=== PATIENT | female | born 2000 | race Caucasian/White ===

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

== ENCOUNTER 2019-01-25 05:33 | Emergency (ER) | payer MEDICAID, OTHER ==
[2019-01-25 06:03] VITALS: BP 137/86; PULSE 113
[2019-01-25] MEDS ORDERED: oxyCODONE 5 MG Tab PO ONE (07:02)
--- NOTE | 2019-01-25 07:26 | EDM.PDOC ---
ED HPI GENERAL MEDICAL PROBLEM - General Chief Complaint: General Stated Complaint: POST SURGERY PAIN Time Seen by Provider: 01/25/19 06:30 Source of Information: Reports: Patient History Limitations: Reports: No Limitations - History of Present Illness INITIAL COMMENTS - FREE TEXT/NARRATIVE: 18 yo presents with concerns of left hand pain Had traumatic injury to the extremity last week. Transferred to [place], had 3 operations there by ortho, hand, and trauma (skin graft) Doing well post-op until this AM. Noticed significant increase in pain in the left hand. Numbness of the left pinkie. Hasn't been responsive to pain meds, has been elevating the extremity. Right Arm Pain Score (Numeric/FACES): 7 - Related Data Allergies Allergy/AdvReac Type Severity Reaction Status Date / Time No Known Allergies Allergy Verified 01/25/19 05:45 Home Meds: Home Meds SUMAtriptan Succinate [Imitrex] 50 mg PO ASDIRECTED 06/04/16 [History] medroxyPROGESTERone Acetate [Depo-Provera] 1 ml IM Q90D 06/04/16 [History] ALPRAZolam [Alprazolam] 1 mg PO TID PRN 01/25/19 [History] Gabapentin [Neurontin] 300 mg PO TID 01/25/19 [History] Ibuprofen 600 mg PO Q6H PRN 01/25/19 [History] Sulfamethoxazole/Trimethoprim [Bactrim Ds Tablet] 1 each PO BID 01/25/19 [ History] oxyCODONE 10 mg PO Q3H PRN 01/25/19 [History] tiZANidine [Zanaflex] 2 mg PO Q8H PRN 01/25/19 [History] Past Medical History HEENT History: Reports: Allergic Rhinitis Respiratory History: Reports: Asthma Gastrointestinal History: Reports: Cholelithiasis, GERD Genitourinary History: Reports: UTI, Recurrent Musculoskeletal History: Reports: Fracture, Other (See Below) Other Musculoskeletal History: "snapping right hip", muscle spasms of lower extremity Neurological History: Reports: Migraines Psychiatric History: Reports: Anxiety, Depression, OCD, Suicide Attempt - Infectious Disease History Infectious Disease History: Reports: MRSA - Past Surgical History HEENT Surgical History: Reports: Adenoidectomy, Tonsillectomy Respiratory Surgical History: Reports: None GI Surgical History: Reports: Cholecystectomy Female Surgical History: Reports: None Neurological Surgical History: Reports: None Musculoskeletal Surgical History: Reports: None, Other (See Below) Dermatological Surgical History: Reports: Skin Graft, Other (See Below) Social & Family History - Family History Family Medical History: Noncontributory - Caffeine Use Caffeine Use: Reports: Soda Caffeine Use Comment: small amount - Recreational Drug Use Recreational Drug Use: Yes Recreational Drug Type: Reports: Marijuana/Hashish Recreational Drug Use Frequency: Rarely ED ROS GENERAL - Review of Systems Review Of Systems: See Below Constitutional: Reports: No Symptoms HEENT: Reports: No Symptoms Respiratory: Reports: No Symptoms Cardiovascular: Reports: No Symptoms Endocrine: Reports: No Symptoms GI/Abdominal: Reports: No Symptoms : Reports: No Symptoms Musculoskeletal: Reports: Hand Pain Skin: Reports: No Symptoms Neurological: Reports: No Symptoms Psychiatric: Reports: No Symptoms Hematologic/Lymphatic: Reports: No Symptoms Immunologic: Reports: No Symptoms ED EXAM, GENERAL - Physical Exam Exam: See Below Exam Limited By: No Limitations General Appearance: Alert, Mild Distress Nose: Normal Inspection Throat/Mouth: Normal Inspection Head: Atraumatic, Normocephalic Respiratory/Chest: No Respiratory Distress, Lungs Clear Cardiovascular: Regular Rate, Rhythm GI/Abdominal: Soft, Non-Tender Back Exam: Normal Inspection Extremities: Other (left arm/hand in splint. taken down. endorses sensation loss over left pinkie - otherwise intact. Difficult to assess compartments due to overlying skin grafts and pain.) Neurological: Alert, Oriented Psychiatric: Normal Affect, Normal Mood Skin Exam: Warm, Dry Course - Vital Signs Last Recorded V/S: Last Vital Signs Temp 36.4 C 01/25/19 06:04 Pulse 113 H 01/25/19 06:04 Resp 18 01/25/19 06:04 BP 137/86 01/25/19 06:04 Pulse Ox 99 01/25/19 06:04 - Orders/Labs/Meds Meds: Medications Discontinued Medications Generic Name Dose Route Start Last Admin Trade Name Freq PRN Reason Stop Dose Admin Oxycodone HCl 10 mg 01/25/19 07:02 01/25/19 07:07 Oxycodone PO 01/25/19 07:03 10 mg ONETIME ONE Administration - Re-Assessments/Exams Free Text/Narrative Re-Assessment/Exam: 18 yo present with acute worsening of left hand pain after recent traumatic injury and surgical repair of the extremity. Took down splint, no relief. Some sensory changes. Given pain, skin grafts difficulty to assess for compartment syndrome but concern for this. Discussed with trauma center in [place], agreed accept in transfer for consultation with specialist. Provided with analgesics. Recommended patient go by ambulance given concern for emergency diagnosis. She declined, understanding the risks, and will travel by private car. 01/25/19 07:43 Departure - Departure Time of Disposition: 07:20 Disposition: Home, Self-Care 01 Clinical Impression: Posttraumatic pain - Discharge Information *PRESCRIPTION DRUG MONITORING PROGRAM REVIEWED*: No *COPY OF PRESCRIPTION DRUG MONITORING REPORT IN PATIENT [place]: No Referrals: PCP,None [Primary Care Provider] - Forms: ED Department Discharge Additional Instructions: Please proceed immediately to the [facility] ER.
== END 2019-01-25 07:41 | disposition home or self-care (01) ==
LOC: JP.ED 05:33
DX: G89.18 Other acute postprocedural pain (principal); M79.642 Pain in left hand; J45.909 Unspecified asthma, uncomplicated; K21.9 Gastro-esophageal reflux disease without esophagitis; F41.9 Anxiety disorder, unspecified; F32.9 Major depressive disorder, single episode, unspecified; Z79.899 Other long term (current) drug therapy
CPT/HCPCS: 99283; A9270; 99284

== ENCOUNTER 2020-03-27 11:48 | Emergency (ER) | payer MEDICAID ==
[2020-03-27] MEDS ORDERED: Ketorolac 60 MG/2 ML SDV IM ONE (12:29)
--- NOTE | 2020-03-27 12:37 | EDM.PDOC ---
ED HPI GENERAL MEDICAL PROBLEM - General Chief Complaint: Chest Pain Stated Complaint: SEVERE LEFT SIDE CHEST PAIN Time Seen by Provider: 03/27/20 12:25 Source of Information: Reports: Patient, Old Records, RN History Limitations: Reports: No Limitations - History of Present Illness INITIAL COMMENTS - FREE TEXT/NARRATIVE: 19 yo female marijuana smoker presents with anterior chest tightness that came on earlier this morning and is not associated with a cough, exertion, or breathing. No hx of the same. No self tx. No calf pain or LE edema. Is on the Nuvaring contraceptive device. Is a smoker. Onset: Today Onset Date: 03/27/20 Duration: Hour(s):, Constant Location: Reports: Chest Quality: Reports: Other (mild tightness) Severity: Mild Improves with: Reports: None Worsens with: Reports: None Context: Reports: Other (See HPI) Associated Symptoms: Reports: Chest Pain. Denies: Cough, Diaphoresis, Fever/Chills, Shortness of Breath Treatments [employer] [address] [employer]: Reports: Other (see below) (none) Left Chest Pain Score (Numeric/FACES): 8 - Related Data Allergies Allergy/AdvReac Type Severity Reaction Status Date / Time ondansetron [From Zofran] AdvReac Vomiting Verified 03/27/20 12:15 Home Meds: Home Meds SUMAtriptan succinate [Imitrex] 50 mg PO ASDIRECTED 06/04/16 [History] ALPRAZolam [Alprazolam] 2 mg PO TID PRN 01/25/19 [History] Cannabidiol (Cbd) Extract [Cannabis (Medical)] 1 dose PO ASDIRECTED 03/27/20 [History] Pregabalin [Lyrica] 25 mg PO TID 03/27/20 [History] traZODone 100 mg PO BEDTIME 03/27/20 [History] Past Medical History HEENT History: Reports: Allergic Rhinitis Respiratory History: Reports: Asthma Gastrointestinal History: Reports: Cholelithiasis, GERD Genitourinary History: Reports: UTI, Recurrent Musculoskeletal History: Reports: Fracture, Other (See Below) Other Musculoskeletal History: "snapping right hip", muscle spasms of lower extremity Neurological History: Reports: Migraines Psychiatric History: Reports: Anxiety, Depression, OCD, Suicide Attempt - Infectious Disease History Infectious Disease History: Reports: MRSA - Past Surgical History HEENT Surgical History: Reports: Adenoidectomy, Tonsillectomy GI Surgical History: Reports: Cholecystectomy Musculoskeletal Surgical History: Reports: Other (See Below) Other Musculoskeletal Surgeries/Procedures:: left foot surgery,. a crush/mangle injury of the left arm with multiple surgeries. Dermatological Surgical History: Reports: Skin Graft, Other (See Below) Social & Family History - Family History Family Medical History: No Pertinent Family History - Tobacco Use Tobacco Use Status *Q: Light Tobacco User Years of Tobacco use: 2 Packs/Tins Daily: 0 - Caffeine Use Caffeine Use: Reports: None Caffeine Use Comment: small amount - Recreational Drug Use Recreational Drug Use: Yes ED ROS GENERAL - Review of Systems Review Of Systems: See Below Constitutional: Reports: No Symptoms HEENT: Reports: No Symptoms Respiratory: Reports: No Symptoms Cardiovascular: Reports: Chest Pain (anterior, upper) Endocrine: Reports: No Symptoms GI/Abdominal: Reports: No Symptoms : Reports: No Symptoms Musculoskeletal: Reports: No Symptoms Skin: Reports: No Symptoms Neurological: Reports: No Symptoms ED EXAM, GENERAL - Physical Exam Exam: See Below Exam Limited By: No Limitations General Appearance: Alert, WD/WN, No Apparent Distress, Thin Eye Exam: Bilateral Eye: Normal Inspection Ears: Normal External Exam, Normal Canal, Hearing Grossly Normal, Normal TMs Ear Exam: Bilateral Ear: Auricle Normal, Canal Normal Nose: Normal Inspection, No Blood Throat/Mouth: Normal Inspection, Normal Lips, Normal Voice, No Airway Compromise Head: Atraumatic, Normocephalic Neck: Normal Inspection Respiratory/Chest: No Respiratory Distress, Lungs Clear, Normal Breath Sounds, No Accessory Muscle Use. No: Chest Non-Tender (anterior chest wall is tender with palpation. ) Cardiovascular: Regular Rate, Rhythm, No Edema GI/Abdominal: Normal Bowel Sounds, Soft, Non-Tender, No Distention Back Exam: Normal Inspection. No: CVA Tenderness (R), CVA Tenderness (L) Extremities: Normal Inspection, Normal Range of Motion, Non-Tender, No Pedal Edema. No: Pedal Edema Neurological: Alert, Oriented, CN II-XII Intact, Normal Cognition, No Motor/Sensory Deficits Psychiatric: Normal Affect, Normal Mood Skin Exam: Warm, Dry, Intact, Normal Color, No Rash Course - Vital Signs Last Recorded V/S: Last Vital Signs Temp 37.1 C 03/27/20 12:12 Pulse 68 03/27/20 14:38 Resp 20 03/27/20 14:38 BP 117/66 03/27/20 14:38 Pulse Ox 98 03/27/20 14:38 - Orders/Labs/Meds Orders: Active Orders 24 hr Category Date Time Status Ang Chest [CT] Stat Exams 03/27/20 13:40 Taken Iopamidol [Isovue-370 (76%)] Med 03/27/20 14:30 Active 100 ml IV . DIRECTED Sodium Chloride 0.9% [Normal Saline] 100 ml Med 03/27/20 14:30 Active IV ASDIRECTED Sodium Chloride 0.9% [Saline Flush] Med 03/27/20 13:41 Active 10 ml FLUSH ASDIRECTED PRN Saline Lock Insert [OM.PC] Routine Oth 03/27/20 13:41 Ordered Medication Orders Sodium Chloride (Normal Saline) 100 mls @ 3.5 mls/sec IV ASDIRECTED MISAEL Stop: 03/27/20 22:00 Iopamidol (Isovue-370 (76%)) 100 ml IV . DIRECTED MISAEL Stop: 03/27/20 22:00 Sodium Chloride (Saline Flush) 10 ml FLUSH ASDIRECTED PRN PRN Reason: Keep Vein Open Last Admin: 03/27/20 13:53 Dose: 10 ml Documented by: [facility] Labs: Laboratory Tests 03/27/20 03/27/20 03/27/20 Range/Units 12:43 12:43 12:43 WBC 8.7 (4.5-11.0) K/uL RBC 4.74 (3.30-5.50) M/uL Hgb 13.5 (12.0-15.0) g/dL Hct 40.1 (36.0-48.0) % MCV 85 (80-98) fL MCH 29 (27-31) pg MCHC 34 (32-36) % Plt Count 293 (150-400) K/uL D-Dimer, Quantitative 827.91 H (0.0-500.0) ng/mL Troponin I < 0.017 (0.000-0.056) ng/mL SARS-CoV-2 RNA (DG) (NEGATIVE) 03/27/20 Range/Units 13:53 WBC (4.5-11.0) K/uL RBC (3.30-5.50) M/uL Hgb (12.0-15.0) g/dL Hct (36.0-48.0) % MCV (80-98) fL MCH (27-31) pg MCHC (32-36) % Plt Count (150-400) K/uL D-Dimer, Quantitative (0.0-500.0) ng/mL Troponin I (0.000-0.056) ng/mL SARS-CoV-2 RNA (DG) Negative (NEGATIVE) Meds: Medications Generic Name Dose Route Start Last Admin Trade Name Freq PRN Reason Stop Dose Admin Sodium Chloride 100 mls @ 3.5 mls/sec 03/27/20 14:30 Normal Saline IV 03/27/20 22:00 ASDIRECTED MISAEL Iopamidol 100 ml 03/27/20 14:30 Isovue-370 (76%) IV 03/27/20 22:00 . DIRECTED MISAEL Sodium Chloride 10 ml 03/27/20 13:41 03/27/20 13:53 Saline Flush FLUSH 10 ml ASDIRECTED PRN Administration Keep Vein Open Discontinued Medications Generic Name Dose Route Start Last Admin Trade Name Freq PRN Reason Stop Dose Admin Ketorolac Tromethamine 60 mg 03/27/20 12:29 03/27/20 13:07 Toradol IM 03/27/20 12:30 60 mg ONETIME ONE Administration Sodium Chloride 10 ml 03/27/20 14:26 Saline Flush FLUSH 03/27/20 14:27 ONETIME ONE Tramadol HCl 100 mg 03/27/20 14:42 03/27/20 14:51 Ultram PO 03/27/20 14:43 100 mg ONETIME ONE Administration - Radiology Interpretation Free Text/Narrative:: CT PE study-neg CT Results Date: 03/27/20 - Re-Assessments/Exams Free Text/Narrative Re-Assessment/Exam: 03/27/20 14:42 Tramadol 100 mg po given for chronic L arm pain. Departure - Departure Time of Disposition: 14:56 Disposition: Home, Self-Care 01 Condition: Fair Clinical Impression: Chest wall pain Instructions: Nonspecific Chest Pain, Adult, [id number] Referrals: PCP,None [Primary Care Provider] - Forms: ED Department Discharge Additional Instructions: Use Tramadol 1-2 every 6 hrs as needed for pain relief and ibuprofen 400 mg every 6 hrs with food also for pain relief. Recheck with your doctor later Wednesday if symptoms persist. Sepsis Event Note (ED) - Evaluation Sepsis Screening Result: No Definite Risk - Focused Exam Vital Signs: Vital Signs Temp Pulse Resp BP BP Pulse Ox 03/27/20 14:38 68 20 117/66 98 03/27/20 13:08 69 14 143/77 H 98 03/27/20 12:12 37.1 C 92 15 139/86 97 - My Orders Last 24 Hours: My Active Orders 03/27/20 13:40 Ang Chest [CT] Stat 03/27/20 13:41 Sodium Chloride 0.9% [Saline Flush] 10 ml FLUSH ASDIRECTED PRN Saline Lock Insert [OM.PC] Routine 03/27/20 14:30 Iopamidol [Isovue-370 (76%)] 100 ml IV . DIRECTED Sodium Chloride 0.9% [Normal Saline] 100 ml IV ASDIRECTED - Assessment/Plan Last 24 Hours: My Active Orders 03/27/20 13:40 Ang Chest [CT] Stat 03/27/20 13:41 Sodium Chloride 0.9% [Saline Flush] 10 ml FLUSH ASDIRECTED PRN Saline Lock Insert [OM.PC] Routine 03/27/20 14:30 Iopamidol [Isovue-370 (76%)] 100 ml IV . DIRECTED Sodium Chloride 0.9% [Normal Saline] 100 ml IV ASDIRECTED
[2020-03-27] MEDS ORDERED: Sodium Chloride 0.9% 10 ML Syringe FLUSH PRN (13:41)
[2020-03-27] MEDS ORDERED: Sodium Chloride 0.9% 10 ML Syringe FLUSH ONE (14:26)
[2020-03-27] MEDS ORDERED: Sodium Chloride 0.9% 100 ML IV SCH (14:30)
[2020-03-27] MEDS ORDERED: Iopamidol 755 Mg/ML 100 ML Bottle IV SCH (14:30)
[2020-03-27 14:39] VITALS: BP 117/66; PULSE 68
[2020-03-27] MEDS ORDERED: traMADol 50 MG Tab PO ONE (14:42)
--- NOTE | 2020-03-27 14:59 | CT ---
Ang Chest CLINICAL HISTORY: Elevated d-dimer, chest pain, smoker TECHNIQUE: Thin section axial contiguous tomographic sections were taken through the chest after bolus IV iodinated contrast administration. Coronal and sagittal images were reconstructed. Auto dosage reduction and iterative reconstruction techniques employed. FINDINGS: No pulmonary masses or infiltrates are seen. There are no filling defects in the pulmonary outflow track or pulmonary arteries. There is soft tissue prominence in the right hilum measuring 1.8 x 1.1 x 1.1 cm. Margins are ill-defined. This some abuts the proximal right upper lobe pulmonary artery. IMPRESSION: No pulmonary emboli identified Right upper hilar prominence may represent an enlarged lymph node. No mass or infiltrate
== END 2020-03-27 15:09 | disposition home or self-care (01) ==
LOC: JP.ED 11:48
DX: R07.89 Other chest pain (principal); J45.909 Unspecified asthma, uncomplicated; F41.9 Anxiety disorder, unspecified; F32.9 Major depressive disorder, single episode, unspecified; F17.200 Nicotine dependence, unspecified, uncomplicated; Z88.8 Allergy status to other drugs, medicaments and biological substances; Z79.899 Other long term (current) drug therapy; Z20.828 Contact with and (suspected) exposure to other viral communicable diseases
CPT/HCPCS: 36415; 71275; 84484; 85027; 85379; 87635; 96372; 99285; A9270; J1885; Q9967; 99283; U0002

== ENCOUNTER 2020-08-23 11:30 | Emergency (ER) | payer MEDICAID ==
[2020-08-23 11:41] VITALS: BP 144/81; PULSE 72
[2020-08-23] MEDS ORDERED: Sodium Chloride 0.9% 1,000 ML IV STA (12:01)
[2020-08-23] MEDS ORDERED: Sodium Chloride 0.9% 10 ML Syringe FLUSH PRN ×2 (12:01→12:30)
[2020-08-23] MEDS ORDERED: Ketorolac 30 MG/ML SDV IVPUSH ONE (12:03)
[2020-08-23] MEDS ORDERED: Ondansetron 4 MG/2 ML SDV IVPUSH ONE (12:03)
--- NOTE | 2020-08-23 12:05 | EDM.PDOC ---
ED HPI GENERAL MEDICAL PROBLEM - General Chief Complaint: Abdominal Pain Stated Complaint: R ABD PAIN Time Seen by Provider: 08/23/20 11:56 Source of Information: Reports: Patient, RN Notes Reviewed History Limitations: Reports: No Limitations - History of Present Illness INITIAL COMMENTS - FREE TEXT/NARRATIVE: 19-year-old female presents emergency department day complaint of abdominal pain, she states the abdominal pain, and this morning it was quite intense pain is so intense at times she will have vomiting she is not had any fevers does have a history of abdominal surgery with a cholecystectomy states the pain comes in waves no history of nephrolithiasis. - Related Data Allergies Allergy/AdvReac Type Severity Reaction Status Date / Time ondansetron [From Zofran] AdvReac Vomiting Verified 08/23/20 11:35 Home Meds: Home Meds SUMAtriptan succinate [Imitrex] 50 mg PO ASDIRECTED 06/04/16 [History] ALPRAZolam [Alprazolam] 2 mg PO TID PRN 01/25/19 [History] Cannabidiol (Cbd) Extract [Cannabis (Medical)] 1 dose PO ASDIRECTED 03/27/20 [History] Pregabalin [Lyrica] 50 mg PO TID 03/27/20 [History] traMADol [Ultram] 50 - 100 mg PO Q6H PRN #14 tab 03/27/20 [Rx] traZODone 100 mg PO BEDTIME 03/27/20 [History] Past Medical History HEENT History: Reports: Allergic Rhinitis Respiratory History: Reports: Asthma Gastrointestinal History: Reports: Cholelithiasis, GERD Genitourinary History: Reports: UTI, Recurrent Musculoskeletal History: Reports: Fracture, Other (See Below) Other Musculoskeletal History: "snapping right hip", muscle spasms of lower extremity Neurological History: Reports: Migraines Psychiatric History: Reports: Anxiety, Depression, OCD, Suicide Attempt Dermatologic History: Reports: None - Infectious Disease History Infectious Disease History: Reports: MRSA - Past Surgical History Head Surgeries/Procedures: Reports: None HEENT Surgical History: Reports: Adenoidectomy, Tonsillectomy Respiratory Surgical History: Reports: None GI Surgical History: Reports: Cholecystectomy Female Surgical History: Reports: None Neurological Surgical History: Reports: None Musculoskeletal Surgical History: Reports: Other (See Below) Other Musculoskeletal Surgeries/Procedures:: left foot surgery,. a crush/mangle injury of the left arm with multiple surgeries. Dermatological Surgical History: Reports: Skin Graft, Other (See Below) Social & Family History - Family History Family Medical History: No Pertinent Family History - Tobacco Use Tobacco Use Status *Q: Current Every Day Tobacco User Years of Tobacco use: 5 Packs/Tins Daily: 0.1 Used Tobacco, but Quit: No Second Hand Smoke Exposure: No - Caffeine Use Caffeine Use: Reports: None, Soda Caffeine Use Comment: small amount - Recreational Drug Use Recreational Drug Use: Yes Drug Use in Last 12 Months: Yes Recreational Drug Type: Reports: Marijuana/Hashish Recreational Drug Use Frequency: Daily ED ROS GENERAL - Review of Systems Review Of Systems: See Below Constitutional: Reports: No Symptoms HEENT: Reports: No Symptoms Respiratory: Reports: No Symptoms Cardiovascular: Reports: No Symptoms GI/Abdominal: Reports: Abdominal Pain, Flatus, Vomiting. Denies: Constipation, Diarrhea, Nausea ED EXAM, GI/ABD - Physical Exam Exam: See Below Exam Limited By: No Limitations General Appearance: Alert, WD/WN, No Apparent Distress Respiratory/Chest: No Respiratory Distress, Lungs Clear, Normal Breath Sounds, No Accessory Muscle Use, Chest Non-Tender Cardiovascular: Regular Rate, Rhythm, No Murmur GI/Abdominal Exam: Soft, Tender (Right upper quadrant) Course - Vital Signs Last Recorded V/S: Last Vital Signs Temp 98.0 F 08/23/20 11:48 Pulse 72 08/23/20 11:48 Resp 18 08/23/20 11:48 BP 144/81 H 08/23/20 11:48 Pulse Ox 98 08/23/20 11:48 - Orders/Labs/Meds Orders: Active Orders 24 hr Category Date Time Status Peripheral IV Care [RC] . DIRECTED Care 08/23/20 12:02 Active Sodium Chloride 0.9% [Normal Saline] 1,000 ml Med 08/23/20 12:01 Active IV .BOLUS Sodium Chloride 0.9% [Saline Flush] Med 08/23/20 12:01 Active 10 ml FLUSH ASDIRECTED PRN Sodium Chloride 0.9% [Saline Flush] Med 08/23/20 12:30 Active 10 ml FLUSH ONETIME PRN Peripheral IV Insertion Adult [OM.PC] Urgent Oth 08/23/20 12:01 Ordered Medication Orders Sodium Chloride (Normal Saline) 1,000 mls @ 500 mls/hr IV .BOLUS STA Stop: 08/23/20 14:00 Last Admin: 08/23/20 12:12 Dose: 500 mls/hr Documented by: NELY Sodium Chloride (Sodium Chloride 0.9% 10 Ml Syringe) 10 ml FLUSH ASDIRECTED PRN PRN Reason: Keep Vein Open Last Admin: 08/23/20 12:13 Dose: 10 ml Documented by: NELY Sodium Chloride (Sodium Chloride 0.9% 10 Ml Syringe) 10 ml FLUSH ONETIME PRN PRN Reason: PER RADIOLOGY PROTOCOL Last Admin: 08/23/20 12:34 Dose: 10 ml Documented by: GLENIS Labs: Laboratory Tests 08/23/20 08/23/20 08/23/20 Range/Units 12:00 12:00 12:00 WBC 13.7 H (4.5-11.0) K/uL RBC 5.29 (3.30-5.50) M/uL Hgb 15.4 H (12.0-15.0) g/dL Hct 45.4 (36.0-48.0) % MCV 86 (80-98) fL MCH 29 (27-31) pg MCHC 34 (32-36) % Plt Count 337 (150-400) K/uL Neut % (Auto) 78 H (36-66) % Lymph % (Auto) 15 L (24-44) % Love % (Auto) 6 (2-6) % Eos % (Auto) 0 L (2-4) % Baso % (Auto) 0 (0-1) % Sodium 142 (140-148) mmol/L Potassium 3.6 (3.6-5.2) mmol/L Chloride 104 (100-108) mmol/L Carbon Dioxide 24 (21-32) mmol/L Anion Gap 13.9 (5.0-14.0) mmol/L BUN 8 (7-18) mg/dL Creatinine 0.9 (0.6-1.0) mg/dL Est Cr Clr Drug Dosing 70.05 mL/min Estimated GFR (MDRD) > 60 (>60) Glucose 105 (74-106) mg/dL Lactic Acid 1.1 (0.4-2.0) mmol/L Calcium 9.1 (8.5-10.1) mg/dL Total Bilirubin 0.4 (0.2-1.0) mg/dL AST 13 L (15-37) U/L ALT 24 (12-78) U/L Alkaline Phosphatase 47 (46-116) U/L Total Protein 7.5 (6.4-8.2) g/dL Albumin 4.0 (3.4-5.0) g/dL Globulin 3.5 (2.3-3.5) g/dL Albumin/Globulin Ratio 1.1 L (1.2-2.2) Urine Color (YELLOW) Urine Appearance (CLEAR) Urine pH (5.0-8.0) Ur Specific [place] (1.008-1.030) Urine Protein (NEGATIVE) mg/dL Urine Glucose (UA) (NEGATIVE) mg/dL Urine Ketones (NEGATIVE) mg/dL Urine Occult Blood (NEGATIVE) Urine Nitrite (NEGATIVE) Urine Bilirubin (NEGATIVE) Urine Urobilinogen (0.2-1.0) EU/dL Ur Leukocyte Esterase (NEGATIVE) Urine RBC (0-5) Urine WBC (0-5) Ur Epithelial Cells Amorphous Sediment Urine Bacteria Urine Mucus Urine HCG, Qual 08/23/20 08/23/20 Range/Units 12:14 12:14 WBC (4.5-11.0) K/uL RBC (3.30-5.50) M/uL Hgb (12.0-15.0) g/dL Hct (36.0-48.0) % MCV (80-98) fL MCH (27-31) pg MCHC (32-36) % Plt Count (150-400) K/uL Neut % (Auto) (36-66) % Lymph % (Auto) (24-44) % Love % (Auto) (2-6) % Eos % (Auto) (2-4) % Baso % (Auto) (0-1) % Sodium (140-148) mmol/L Potassium (3.6-5.2) mmol/L Chloride (100-108) mmol/L Carbon Dioxide (21-32) mmol/L Anion Gap (5.0-14.0) mmol/L BUN (7-18) mg/dL Creatinine (0.6-1.0) mg/dL Est Cr Clr Drug Dosing mL/min Estimated GFR (MDRD) (>60) Glucose (74-106) mg/dL Lactic Acid (0.4-2.0) mmol/L Calcium (8.5-10.1) mg/dL Total Bilirubin (0.2-1.0) mg/dL AST (15-37) U/L ALT (12-78) U/L Alkaline Phosphatase (46-116) U/L Total Protein (6.4-8.2) g/dL Albumin (3.4-5.0) g/dL Globulin (2.3-3.5) g/dL Albumin/Globulin Ratio (1.2-2.2) Urine Color Yellow (YELLOW) Urine Appearance Cloudy A (CLEAR) Urine pH 5.5 (5.0-8.0) Ur Specific [place] >= 1.030 (1.008-1.030) Urine Protein Negative (NEGATIVE) mg/dL Urine Glucose (UA) Negative (NEGATIVE) mg/dL Urine Ketones Negative (NEGATIVE) mg/dL Urine Occult Blood Trace-intact H (NEGATIVE) Urine Nitrite Negative (NEGATIVE) Urine Bilirubin Negative (NEGATIVE) Urine Urobilinogen 0.2 (0.2-1.0) EU/dL Ur Leukocyte Esterase Negative (NEGATIVE) Urine RBC 0-5 (0-5) Urine WBC 5-10 H (0-5) Ur Epithelial Cells Moderate Amorphous Sediment Not seen Urine Bacteria Many Urine Mucus Many Urine HCG, Qual Negative Meds: Medications Generic Name Dose Route Start Last Admin Trade Name Freq PRN Reason Stop Dose Admin Sodium Chloride 1,000 mls @ 500 mls/hr 08/23/20 12:01 08/23/20 12:12 Normal Saline IV 08/23/20 14:00 500 mls/hr .BOLUS STA Administration Sodium Chloride 10 ml 08/23/20 12:01 08/23/20 12:13 Sodium Chloride 0.9% 10 Ml Syringe FLUSH 10 ml ASDIRECTED PRN Administration Keep Vein Open Sodium Chloride 10 ml 08/23/20 12:30 08/23/20 12:34 Sodium Chloride 0.9% 10 Ml Syringe FLUSH 10 ml ONETIME PRN Administration PER RADIOLOGY PROTOCOL Discontinued Medications Generic Name Dose Route Start Last Admin Trade Name Freq PRN Reason Stop Dose Admin Hyoscyamine 0.125 mg 08/23/20 13:26 08/23/20 13:30 Hyoscyamine 0.125 Mg Tab.Sl SL 08/23/20 13:27 0.125 mg ONETIME ONE Administration Sodium Chloride 70 mls @ 3 mls/sec 08/23/20 12:30 08/23/20 12:34 Normal Saline IV 08/23/20 12:31 3 mls/sec ONETIME ONE Administration Iopamidol 66 ml 08/23/20 12:30 08/23/20 12:34 Iopamidol 612 Mg/Ml 100 Ml Bottle IV 66 ml . DIRECTED PRN Administration RADIOLOGY EXAM Ketorolac Tromethamine 30 mg 08/23/20 12:03 08/23/20 12:13 Ketorolac 30 Mg/Ml Sdv IVPUSH 08/23/20 12:04 30 mg ONETIME ONE Administration Ondansetron HCl 4 mg 08/23/20 12:03 08/23/20 12:20 Ondansetron 4 Mg/2 Ml Sdv IVPUSH 08/23/20 12:04 Not Given ONETIME ONE Departure - Departure Time of Disposition: 13:53 Disposition: Home, Self-Care 01 Condition: Fair Clinical Impression: Right upper quadrant abdominal pain - Discharge Information Instructions: Abdominal Pain During Referrals: Adelina Farias MD [Primary Care Provider] - Forms: ED Department Discharge Additional Instructions: Recommend avoidance of lactose continue to push fluids continue regular medications, please followup with your primary care provider in 3-5 days if not better, please call return to the emergency department with worsening of symptoms. Sepsis Event Note (ED) - Evaluation Sepsis Screening Result: No Definite Risk - Focused Exam Vital Signs: Vital Signs Temp Pulse Resp BP Pulse Ox 08/23/20 11:48 98.0 F 72 18 144/81 H 98 08/23/20 11:41 98.0 F 72 18 144/81 H 98 - My Orders Last 24 Hours: My Active Orders 08/23/20 12:01 Sodium Chloride 0.9% [Normal Saline] 1,000 ml IV .BOLUS Sodium Chloride 0.9% [Saline Flush] 10 ml FLUSH ASDIRECTED PRN Peripheral IV Insertion Adult [OM.PC] Urgent 08/23/20 12:02 Peripheral IV Care [RC] . DIRECTED 08/23/20 12:30 Sodium Chloride 0.9% [Saline Flush] 10 ml FLUSH ONETIME PRN - Assessment/Plan Last 24 Hours: My Active Orders 08/23/20 12:01 Sodium Chloride 0.9% [Normal Saline] 1,000 ml IV .BOLUS Sodium Chloride 0.9% [Saline Flush] 10 ml FLUSH ASDIRECTED PRN Peripheral IV Insertion Adult [OM.PC] Urgent 08/23/20 12:02 Peripheral IV Care [RC] . DIRECTED 08/23/20 12:30 Sodium Chloride 0.9% [Saline Flush] 10 ml FLUSH ONETIME PRN Plan: Assessment Acuity = acute Site and laterality = right upper quadrant abdominal pain Etiology = unknown suspicious for lactose intolerance Manifestations = none Location of injury = Home Lab values = WBC elevated 13.7 consistent leukocytosis of uncertain significance, CMP unremarkable lactic acid within normal limits CT scan does reveal thickened small bowel consistent with enteritis urinalysis 5-10 WBCs consistent with pyuria however no leukocyte esterase Plan She did admit to consuming large amount of cheese and sour cream yesterday she house has had problems with dairy this may be contributing to her problem. We did try Anaspaz without much success in the emergency department she is going to continue with avoidance follow-up with primary care in 3 to 5 days if not better This note was dictated using [employer] voice recognition software please call with any questions on syntax or grammar.
[2020-08-23] MEDS ORDERED: Iopamidol 612 MG/ML 100 ML Bottle IV PRN (12:30)
--- NOTE | 2020-08-23 13:04 | CRLCT ---
INDICATION: Right upper quadrant pain TECHNIQUE: CT abdomen and pelvis acquired with 66 cc Isovue-300 IV contrast. COMPARISON: May 31, 2020 FINDINGS: Lower chest: Unremarkable. Liver: Unremarkable. Spleen: Unremarkable. Pancreas: Unremarkable. Gallbladder and bile ducts: S/p cholecystectomy. Adrenal glands: Unremarkable. Kidneys: Unremarkable. GI tract: There is some circumferential wall thickening of the terminal ileum and distal ileal bowel loops. No free air or pneumatosis. More proximal small bowel loops are normal in appearance. The colon is normal in appearance. Trace free fluid in the pelvis. Appendix is normal. Vascular structures: Unremarkable. Lymph nodes: Unremarkable. Pelvic Organs: There is a vaginal contraceptive ring in place. Bones: Unremarkable for age. IMPRESSION: New circumferential wall thickening of the distal small bowel and terminal ileum. Findings may be due to enteritis or inflammatory bowel disease. Status post cholecystectomy. Vaginal contraceptive ring in place. Please note that all CT scans at this facility use dose modulation, iterative reconstruction, and/or weight-based dosing when appropriate to reduce radiation dose to as low as reasonably achievable. Dictated by Eduarda Harvey MD @ Aug 23 2020 1:03PM Signed by Dr. Eduarda Harvey @ Aug 23 2020 1:03PM
[2020-08-23] MEDS ORDERED: Hyoscyamine 0.125 MG Tab.SL SL ONE (13:26)
== END 2020-08-23 14:00 | disposition home or self-care (01) ==
LOC: JP.ED 11:30
DX: R10.11 Right upper quadrant pain (principal); J45.909 Unspecified asthma, uncomplicated; Z79.899 Other long term (current) drug therapy; Z72.0 Tobacco use; Z88.8 Allergy status to other drugs, medicaments and biological substances
CPT/HCPCS: 36415; 74177; 80053; 81001; 81025; 83605; 85025; 96374; 99284; A9270; J1885; J7030; Q9967

== ENCOUNTER 2021-04-17 19:02 | Emergency (ER) | payer MEDICAID ==
[2021-04-17 19:39] VITALS: BP 137/86; PULSE 81
--- NOTE | 2021-04-17 19:58 | EDM.PDOC ---
ED HPI GENERAL MEDICAL PROBLEM - General Chief Complaint: General Stated Complaint: ALLERGIC REACTION, VOMITING, LOWER ABD PAIN Time Seen by Provider: 04/17/21 19:55 Source of Information: Reports: Patient, Old Records, RN History Limitations: Reports: No Limitations - History of Present Illness INITIAL COMMENTS - FREE TEXT/NARRATIVE: 20 yo female presents with chronic abdominal pain that is worse. Was seen in the clinic earlier today and had a normal CBC, CRP, UA, CMP, and urine preg. She tells nursing here that her stools are dark since being in the clinic. She was here this past August and had a similar lab work up with a CT scan that was all normal. There has not been fever, but she does have vomiting without hematemesis. Pain waxes and wanes and moves around. Diarrhea since the onset of her illness. Got sick initially about 3 weeks ago down in [place] and thought it was food poisoning, but when it hadn't gone away went to the walk-in clinic today. Onset: Gradual Duration: Week(s): (3), Waxing/Waning Location: Reports: Abdomen, Generalized Quality: Reports: Sharp, Other (cramping) Severity: Moderate Improves with: Reports: None Worsens with: Reports: Other (unsure) Context: Reports: Other (See HPI) Associated Symptoms: Reports: Nausea/Vomiting, Other (diarrhea, dark stools). 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) - Related Data Allergies Allergy/AdvReac Type Severity Reaction Status Date / Time ondansetron [From Zofran] AdvReac Vomiting Verified 04/17/21 19:31 Home Meds: Home Meds SUMAtriptan succinate [Imitrex] 50 mg PO ASDIRECTED 06/04/16 [History] ALPRAZolam [Alprazolam] 2 mg PO TID PRN 01/25/19 [History] Pregabalin [Lyrica] 50 mg PO TID 03/27/20 [History] traZODone 100 mg PO BEDTIME 03/27/20 [History] Past Medical History HEENT History: Reports: Allergic Rhinitis Cardiovascular History: Reports: Arrhythmia Respiratory History: Reports: Asthma Gastrointestinal History: Reports: Cholelithiasis, GERD Genitourinary History: Reports: UTI, Recurrent Musculoskeletal History: Reports: Fracture, Osteoporosis, Other (See Below) Other Musculoskeletal History: "snapping right hip", muscle spasms of lower extremity. chronic pain in left arm Neurological History: Reports: Migraines Psychiatric History: Reports: Anxiety, Depression, OCD, Suicide Attempt Dermatologic History: Reports: None - Infectious Disease History Infectious Disease History: Reports: MRSA - Past Surgical History Head Surgeries/Procedures: Reports: None HEENT Surgical History: Reports: Adenoidectomy, Tonsillectomy Respiratory Surgical History: Reports: None GI Surgical History: Reports: Cholecystectomy Female Surgical History: Reports: None Neurological Surgical History: Reports: None Musculoskeletal Surgical History: Reports: Other (See Below) Other Musculoskeletal Surgeries/Procedures:: left foot surgery,. a crush/mangle injury of the left arm with multiple surgeries. Dermatological Surgical History: Reports: Skin Graft, Other (See Below) Social & Family History - Family History Family Medical History: No Pertinent Family History - Tobacco Use Tobacco Use Status *Q: Current Every Day Tobacco User Years of Tobacco use: 5 Packs/Tins Daily: 1 - Caffeine Use Caffeine Use: Reports: None, Soda Caffeine Use Comment: small amount - Recreational Drug Use Recreational Drug Use: No ED ROS GENERAL - Review of Systems Review Of Systems: See Below Constitutional: Reports: No Symptoms HEENT: Reports: No Symptoms Respiratory: Reports: No Symptoms Cardiovascular: Reports: No Symptoms Endocrine: Reports: No Symptoms GI/Abdominal: Reports: Abdominal Pain, Diarrhea, Nausea, Vomiting, Other (dark stools) : Reports: No Symptoms Musculoskeletal: Reports: No Symptoms Skin: Reports: No Symptoms Neurological: Reports: No Symptoms ED EXAM, GENERAL - Physical Exam Exam: See Below Exam Limited By: No Limitations General Appearance: Alert, WD/WN, No Apparent Distress Eye Exam: Bilateral Eye: Normal Inspection Ears: Normal External Exam, Normal Canal, Hearing Grossly Normal, Normal TMs Ear Exam: Bilateral Ear: Auricle Normal, Canal Normal, TM normal Nose: Normal Inspection, No Blood Throat/Mouth: Normal Inspection, Normal Lips, Normal Oropharynx, Normal Voice, No Airway Compromise Head: Atraumatic, Normocephalic Neck: Normal Inspection Respiratory/Chest: No Respiratory Distress, Lungs Clear, Normal Breath Sounds, No Accessory Muscle Use Cardiovascular: Regular Rate, Rhythm, No Edema. No: Tachycardia GI/Abdominal: Normal Bowel Sounds, Soft, No Distention, Tender (mild, diffuse). No: Non-Tender, Distended, Guarding, Rigid, Rebound Extremities: Normal Inspection, Normal Range of Motion, Non-Tender, No Pedal Edema Neurological: Alert, Oriented, CN II-XII Intact, Normal Cognition, No Motor/Sensory Deficits Psychiatric: Normal Affect, Normal Mood Skin Exam: Warm, Dry, Intact, Normal Color, No Rash Course - Vital Signs Last Recorded V/S: Last Vital Signs Temp 36.7 C 04/17/21 19:39 Pulse 81 04/17/21 19:39 Resp 17 04/17/21 19:39 BP 137/86 04/17/21 19:39 Pulse Ox 97 04/17/21 19:39 - Orders/Labs/Meds Orders: Active Orders 24 hr Category Date Time Status Hemoccult [OCCULT BLOOD DIAGNOSTIC] [OP] Stat Lab 04/17/21 19:50 Ordered Lactated Ringers [Ringers, Lactated] 1,000 ml Med 04/17/21 20:05 Active IV BOLUS Medication Orders Lactated Ringer's (Ringers, Lactated) 1,000 mls @ 1,000 mls/hr IV BOLUS ONE Stop: 04/17/21 21:04 Last Admin: 04/17/21 20:23 Dose: 1,000 mls/hr Documented by: JAKE Meds: Medications Generic Name Dose Route Start Last Admin Trade Name Freq PRN Reason Stop Dose Admin Lactated Ringer's 1,000 mls @ 1,000 mls/hr 04/17/21 20:05 04/17/21 20:23 Ringers, Lactated IV 04/17/21 21:04 1,000 mls/hr BOLUS ONE Administration Discontinued Medications Generic Name Dose Route Start Last Admin Trade Name Freq PRN Reason Stop Dose Admin Loperamide HCl 2 mg 04/17/21 20:06 Loperamide 2 Mg Cap PO 04/17/21 20:07 ONETIME ONE Metoclopramide HCl 5 mg 04/17/21 20:05 04/17/21 20:23 Metoclopramide 10 Mg/2 Ml Sdv IVPUSH 04/17/21 20:06 5 mg ONETIME ONE Administration - Re-Assessments/Exams Free Text/Narrative Re-Assessment/Exam: 04/17/21 20:36 the nurse was starting her IV to give her fluids and nausea medicine and oral anti-diarrheal agents on order waiting for a stool specimen. Patient stormed out because narcotic pain meds were not ordered for immediate relief. Departure - Departure Time of Disposition: 20:37 Disposition: Eloped 07 Condition: Good Clinical Impression: Abdominal pain in female patient - Discharge Information *PRESCRIPTION DRUG MONITORING PROGRAM REVIEWED*: Not Applicable *COPY OF PRESCRIPTION DRUG MONITORING REPORT IN PATIENT [place]: Not Applicable Referrals: PCP,None [Primary Care Provider] - Forms: ED Department Discharge Sepsis Event Note (ED) - Evaluation Sepsis Screening Result: No Definite Risk - Focused Exam Vital Signs: Vital Signs Temp Pulse Resp BP Pulse Ox 04/17/21 19:39 36.7 C 81 17 137/86 97 04/17/21 19:38 36.7 C 81 17 137/86 97 - My Orders Last 24 Hours: My Active Orders 04/17/21 19:50 Hemoccult [OCCULT BLOOD DIAGNOSTIC] [OP] Stat 04/17/21 20:05 Lactated Ringers [Ringers, Lactated] 1,000 ml IV BOLUS - Assessment/Plan Last 24 Hours: My Active Orders 04/17/21 19:50 Hemoccult [OCCULT BLOOD DIAGNOSTIC] [OP] Stat 04/17/21 20:05 Lactated Ringers [Ringers, Lactated] 1,000 ml IV BOLUS
[2021-04-17] MEDS ORDERED: Metoclopramide 10 MG/2 ML SDV IVPUSH ONE (20:05)
[2021-04-17] MEDS ORDERED: Lactated Ringers 1,000 ML IV ONE (20:05)
[2021-04-17] MEDS ORDERED: Loperamide 2 MG Cap PO ONE (20:06)
== END 2021-04-17 20:46 | disposition left against medical advice (07) ==
LOC: JP.ED 19:02
DX: R10.9 Unspecified abdominal pain (principal); Z88.8 Allergy status to other drugs, medicaments and biological substances; Z72.0 Tobacco use
CPT/HCPCS: 96374; 99283; J2765; J7120

== ENCOUNTER 2021-04-30 09:01 | Emergency (ER) | payer MEDICAID ==
[2021-04-30] MEDS ORDERED: Sodium Chloride 0.9% 10 ML Syringe FLUSH PRN (10:06)
[2021-04-30] MEDS ORDERED: Sodium Chloride 0.9% 1,000 ML IV STA (10:06)
--- NOTE | 2021-04-30 10:17 | EDM.PDOC ---
ED HPI GENERAL MEDICAL PROBLEM - General Chief Complaint: Abdominal Pain Stated Complaint: VOMITING, DIARRHEA, LOWER ABD PAIN Time Seen by Provider: 04/30/21 10:00 Source of Information: Reports: Patient, RN Notes Reviewed History Limitations: Reports: No Limitations - History of Present Illness INITIAL COMMENTS - FREE TEXT/NARRATIVE: 20-year-old female presents emergency department today complaint of abdominal pain, she has a history of chronic abdominal pain is been going on for about 2 months. The pain was exacerbated after a trip to [place]. Was initially evaluated in the emergency department first part of April follow-up in clinic excellent work-up was done in the clinic blood work done stool sample collected all was unremarkable. She states she still having cramping abdominal pain predominantly in the lower pelvis she has diarrhea which consists of 6-8 loose stools per day and varies in amount at times she will go to the bathroom and have little stool produced but very intense abdominal pain. Pain can be so intense at times that she will have emesis. She has not had any fevers no shortness of breath or chest pain. She has a remote family history with a grandmother with inflammatory bowel disease however mother has no history of irritable bowel or inflammatory bowel only has a history of diverticular disease. Abdominal Pain Score (Numeric/FACES): 8 - Related Data Allergies Allergy/AdvReac Type Severity Reaction Status Date / Time metoclopramide [From Reglan] Allergy Vomiting Verified 04/30/21 09:47 ondansetron [From Zofran] AdvReac Vomiting Verified 04/30/21 09:47 Home Meds: Home Meds SUMAtriptan succinate [Imitrex] 50 mg PO ASDIRECTED 06/04/16 [History] ALPRAZolam [Alprazolam] 2 mg PO TID PRN 01/25/19 [History] Pregabalin [Lyrica] 50 mg PO TID 03/27/20 [History] traZODone 100 mg PO BEDTIME 03/27/20 [History] traMADol [Ultram] 50 mg PO Q6H PRN 04/30/21 [History] Past Medical History HEENT History: Reports: Allergic Rhinitis Cardiovascular History: Reports: Arrhythmia Respiratory History: Reports: Asthma Gastrointestinal History: Reports: Cholelithiasis, GERD Genitourinary History: Reports: UTI, Recurrent Musculoskeletal History: Reports: Fracture, Osteoporosis, Other (See Below) Other Musculoskeletal History: "snapping right hip", muscle spasms of lower extremity. chronic pain in left arm Neurological History: Reports: Migraines Psychiatric History: Reports: Anxiety, Depression, OCD, Suicide Attempt Dermatologic History: Reports: None - Infectious Disease History Infectious Disease History: Reports: MRSA - Past Surgical History Head Surgeries/Procedures: Reports: None HEENT Surgical History: Reports: Adenoidectomy, Tonsillectomy Respiratory Surgical History: Reports: None GI Surgical History: Reports: Cholecystectomy Female Surgical History: Reports: None Neurological Surgical History: Reports: None Musculoskeletal Surgical History: Reports: Other (See Below) Other Musculoskeletal Surgeries/Procedures:: left foot surgery,. a crush/mangle injury of the left arm with multiple surgeries. Dermatological Surgical History: Reports: Skin Graft, Other (See Below) Social & Family History - Family History Family Medical History: No Pertinent Family History - Tobacco Use Years of Tobacco use: 5 - Caffeine Use Caffeine Use: Reports: None Caffeine Use Comment: small amount - Recreational Drug Use Recreational Drug Type: Reports: Marijuana/Hashish ED ROS GENERAL - Review of Systems Review Of Systems: See Below Constitutional: Reports: No Symptoms HEENT: Reports: No Symptoms Respiratory: Reports: No Symptoms Cardiovascular: Reports: No Symptoms GI/Abdominal: Reports: Abdominal Pain, Diarrhea, Flatus, Nausea, Vomiting : Reports: No Symptoms ED EXAM, GI/ABD - Physical Exam Exam: See Below Exam Limited By: No Limitations General Appearance: Alert, WD/WN, No Apparent Distress Respiratory/Chest: No Respiratory Distress, Lungs Clear, Normal Breath Sounds, No Accessory Muscle Use, Chest Non-Tender Cardiovascular: Regular Rate, Rhythm, No Murmur GI/Abdominal Exam: Soft, No Organomegaly, No Distention, No Abnormal Bruit, No Mass, Tender (Pelvic region) Course - Vital Signs Last Recorded V/S: Last Vital Signs Temp 97.2 F 04/30/21 09:45 Pulse 60 04/30/21 12:03 Resp 18 04/30/21 10:37 BP 111/74 04/30/21 12:03 Pulse Ox 98 04/30/21 12:03 - Orders/Labs/Meds Orders: Active Orders 24 hr Category Date Time Status Peripheral IV Care [RC] . DIRECTED Care 04/30/21 10:07 Active Iopamidol [Isovue-300 (61%)] Med 12/22/21 10:32 Active 70 ml IV . DIRECTED PRN Sodium Chloride 0.9% [Saline Flush] Med 04/30/21 10:06 Active 10 ml FLUSH ASDIRECTED PRN Peripheral IV Insertion Adult [OM.PC] Urgent Oth 04/30/21 10:06 Ordered Medication Orders Iopamidol (Iopamidol 612 Mg/Ml 100 Ml Bottle) 70 ml IV . DIRECTED PRN PRN Reason: RADIOLOGY EXAM Stop: 05/01/21 10:33 Last Admin: 04/30/21 11:15 Dose: 70 ml Documented by: STACMAG Sodium Chloride (Sodium Chloride 0.9% 10 Ml Syringe) 10 ml FLUSH ASDIRECTED PRN PRN Reason: Keep Vein Open Last Admin: 04/30/21 11:15 Dose: 10 ml Documented by: STACMAG Labs: Laboratory Tests 04/30/21 04/30/21 04/30/21 Range/Units 10:23 10:23 10:23 WBC 6.8 (4.5-11.0) K/uL RBC 4.62 (3.30-5.50) M/uL Hgb 13.4 D (12.0-15.0) g/dL Hct 39.6 (36.0-48.0) % MCV 86 (80-98) fL MCH 29 (27-31) pg MCHC 34 (32-36) % Plt Count 286 (150-400) K/uL Neut % (Auto) 32.9 L (36-66) % Lymph % (Auto) 53.7 H (24-44) % Nicollet % (Auto) 10.1 H (2-6) % Eos % (Auto) 2.9 (2-4) % Baso % (Auto) 0.4 (0-1) % Sodium 140 (140-148) mmol/L Potassium 3.6 (3.6-5.2) mmol/L Chloride 104 (100-108) mmol/L Carbon Dioxide 27 (21-32) mmol/L Anion Gap 9.0 (5.0-14.0) mmol/L BUN 11 (7-18) mg/dL Creatinine 0.8 (0.6-1.0) mg/dL Est Cr Clr Drug Dosing 83.41 mL/min Estimated GFR (MDRD) > 60 (>60) Glucose 87 (74-106) mg/dL Lactic Acid 0.6 (0.4-2.0) mmol/L Calcium 8.8 (8.5-10.1) mg/dL Total Bilirubin 0.4 (0.2-1.0) mg/dL AST 16 (15-37) U/L ALT 30 (12-78) U/L Alkaline Phosphatase 48 (46-116) U/L Total Protein 6.4 (6.4-8.2) g/dL Albumin 3.8 (3.4-5.0) g/dL Globulin 2.6 (2.3-3.5) g/dL Albumin/Globulin Ratio 1.5 (1.2-2.2) Lipase 79 (73-393) U/L Urine Color (YELLOW) Urine Appearance (CLEAR) Urine pH (5.0-8.0) Ur Specific Slovan (1.008-1.030) Urine Protein (NEGATIVE) mg/dL Urine Glucose (UA) (NEGATIVE) mg/dL Urine Ketones (NEGATIVE) mg/dL Urine Occult Blood (NEGATIVE) Urine Nitrite (NEGATIVE) Urine Bilirubin (NEGATIVE) Urine Urobilinogen (0.2-1.0) EU/dL Ur Leukocyte Esterase (NEGATIVE) Urine RBC (0-5) Urine WBC (0-5) Ur Epithelial Cells Amorphous Sediment Urine Bacteria Urine Mucus Urine HCG, Qual 04/30/21 04/30/21 Range/Units 10:50 10:50 WBC (4.5-11.0) K/uL RBC (3.30-5.50) M/uL Hgb (12.0-15.0) g/dL Hct (36.0-48.0) % MCV (80-98) fL MCH (27-31) pg MCHC (32-36) % Plt Count (150-400) K/uL Neut % (Auto) (36-66) % Lymph % (Auto) (24-44) % Nicollet % (Auto) (2-6) % Eos % (Auto) (2-4) % Baso % (Auto) (0-1) % Sodium (140-148) mmol/L Potassium (3.6-5.2) mmol/L Chloride (100-108) mmol/L Carbon Dioxide (21-32) mmol/L Anion Gap (5.0-14.0) mmol/L BUN (7-18) mg/dL Creatinine (0.6-1.0) mg/dL Est Cr Clr Drug Dosing mL/min Estimated GFR (MDRD) (>60) Glucose (74-106) mg/dL Lactic Acid (0.4-2.0) mmol/L Calcium (8.5-10.1) mg/dL Total Bilirubin (0.2-1.0) mg/dL AST (15-37) U/L ALT (12-78) U/L Alkaline Phosphatase (46-116) U/L Total Protein (6.4-8.2) g/dL Albumin (3.4-5.0) g/dL Globulin (2.3-3.5) g/dL Albumin/Globulin Ratio (1.2-2.2) Lipase (73-393) U/L Urine Color Yellow (YELLOW) Urine Appearance Slightly cloudy A (CLEAR) Urine pH 5.5 (5.0-8.0) Ur Specific [place] >= 1.030 (1.008-1.030) Urine Protein Negative (NEGATIVE) mg/dL Urine Glucose (UA) Negative (NEGATIVE) mg/dL Urine Ketones Negative (NEGATIVE) mg/dL Urine Occult Blood Negative (NEGATIVE) Urine Nitrite Negative (NEGATIVE) Urine Bilirubin Negative (NEGATIVE) Urine Urobilinogen 0.2 (0.2-1.0) EU/dL Ur Leukocyte Esterase Small H (NEGATIVE) Urine RBC Not seen (0-5) Urine WBC 5-10 H (0-5) Ur Epithelial Cells Moderate Amorphous Sediment Few Urine Bacteria Moderate Urine Mucus Moderate Urine HCG, Qual Negative Meds: Medications Generic Name Dose Route Start Last Admin Trade Name Freq PRN Reason Stop Dose Admin Iopamidol 70 ml 04/30/21 10:32 04/30/21 11:15 Iopamidol 612 Mg/Ml 100 Ml Bottle IV 05/01/21 10:33 70 ml . DIRECTED PRN Administration RADIOLOGY EXAM Sodium Chloride 10 ml 04/30/21 10:06 04/30/21 11:15 Sodium Chloride 0.9% 10 Ml Syringe FLUSH 10 ml ASDIRECTED PRN Administration Keep Vein Open Discontinued Medications Generic Name Dose Route Start Last Admin Trade Name Freq PRN Reason Stop Dose Admin Hyoscyamine 0.125 mg 04/30/21 10:20 04/30/21 10:34 Hyoscyamine 0.125 Mg Tab.Sl SL 04/30/21 10:21 0.125 mg ONETIME ONE Administration Sodium Chloride 1,000 mls @ 500 mls/hr 04/30/21 10:06 04/30/21 10:30 Normal Saline IV 04/30/21 12:05 500 mls/hr .BOLUS STA Administration Sodium Chloride 100 mls @ 3 mls/sec 04/30/21 10:45 04/30/21 11:15 Normal Saline IV 04/30/21 10:46 3 mls/sec ASDIRECTED MISAEL Administration Ketorolac Tromethamine 30 mg 04/30/21 10:20 04/30/21 10:34 Ketorolac 30 Mg/Ml Sdv IVPUSH 04/30/21 10:21 30 mg ONETIME ONE Administration Sodium Chloride 10 ml 04/30/21 10:32 04/30/21 11:04 Sodium Chloride 0.9% 10 Ml Sdv FLUSH 04/30/21 10:33 10 ml ONETIME ONE Administration Departure - Departure Time of Disposition: 12:30 Disposition: Home, Self-Care 01 Condition: Fair Clinical Impression: Chronic diarrhea - Discharge Information Instructions: Chronic Diarrhea Referrals: PCP,None [Primary Care Provider] - Forms: ED Department Discharge, ED Return to Work/School Form Additional Instructions: Start your colonoscopy prep tomorrow, the outpatient surgery center will call you for an appointment time on Wednesday with Dr. Murrell for your colonoscopy Sepsis Event Note (ED) - Evaluation Sepsis Screening Result: No Definite Risk - Focused Exam Vital Signs: Vital Signs Temp Pulse Resp BP Pulse Ox 04/30/21 12:03 60 111/74 98 04/30/21 11:33 60 107/65 97 04/30/21 10:37 62 18 117/71 97 04/30/21 09:45 97.2 F 64 16 119/72 98 - My Orders Last 24 Hours: My Active Orders 04/30/21 10:06 Sodium Chloride 0.9% [Saline Flush] 10 ml FLUSH ASDIRECTED PRN Peripheral IV Insertion Adult [OM.PC] Urgent 04/30/21 10:07 Peripheral IV Care [RC] . DIRECTED 04/30/21 10:32 Iopamidol [Isovue-300 (61%)] 70 ml IV . DIRECTED PRN - Assessment/Plan Last 24 Hours: My Active Orders 04/30/21 10:06 Sodium Chloride 0.9% [Saline Flush] 10 ml FLUSH ASDIRECTED PRN Peripheral IV Insertion Adult [OM.PC] Urgent 04/30/21 10:07 Peripheral IV Care [RC] . DIRECTED 04/30/21 10:32 Iopamidol [Isovue-300 (61%)] 70 ml IV . DIRECTED PRN Plan: Assessment Acuity = acute Site and laterality = chronic diarrhea Etiology = unknown Manifestations = crampy abdominal pain Location of injury = Home Lab values = CBC, CMP, urinalysis unremarkable CT scan reveals no acute process Plan Call discussed case with Dr. Murrell at 1215 he is general surgery on-call recommended colonoscopy plan to do that in 2 days the prep was provided for her today This note was dictated using [employer] voice recognition software please call with any questions on syntax or grammar.
[2021-04-30] MEDS ORDERED: Ketorolac 30 MG/ML SDV IVPUSH ONE (10:20)
[2021-04-30] MEDS ORDERED: Hyoscyamine 0.125 MG Tab.SL SL ONE (10:20)
[2021-04-30] MEDS ORDERED: Iopamidol 612 MG/ML 100 ML Bottle IV PRN (10:32)
[2021-04-30] MEDS ORDERED: Sodium Chloride 0.9% 10 ML SDV FLUSH ONE (10:32)
[2021-04-30] MEDS ORDERED: Sodium Chloride 0.9% 100 ML IV SCH (10:45)
--- NOTE | 2021-04-30 11:31 | CT ---
Abdomen Pelvis w Cont CLINICAL HISTORY: Chronic abdominal pain COMPARISON: 08/23/2020. TECHNIQUE: Transverse scans were obtained from the base of the lungs to the pubic symphysis following oral contrast and IV infusion of contrast.Auto dosage reduction and iterative reconstructiontechniques employed. FINDINGS: The lung bases are clear. The liver shows no mass or biliary dilatation. The gallbladder has been removed. The spleen has a normal size and shape. The pancreas shows no mass or inflammatory change. The adrenal glands appear normal bilaterally . The kidneys show no mass, stones or hydronephrosis. The ureters have a normal course and caliber. The bladder is empty. The uterus is anteflexed. No free pelvic fluid collections are identified.The aorta has a normal contour. There is no suspicious retroperitoneal adenopathy. The small intestinal configuration is nonacute. Abdominal pelvic fat planes and low pelvic side kaminski are well demarcated. IMPRESSION: No mass, adenopathy or inflammatory change Previous study in August 2020 showed moderate distal small bowel thickening and inflammatory change. This is not identified on the current exam.
[2021-04-30 11:34] VITALS: PULSE 60
[2021-04-30 12:03] VITALS: BP 111/74
== END 2021-04-30 13:12 | disposition home or self-care (01) ==
LOC: JP.ED 09:01
DX: K52.9 Noninfective gastroenteritis and colitis, unspecified (principal); J45.909 Unspecified asthma, uncomplicated; Z72.0 Tobacco use; Z88.8 Allergy status to other drugs, medicaments and biological substances
CPT/HCPCS: 36415; 74177; 80053; 81001; 81025; 83605; 83690; 85025; 87635; 96374; 99284; A9270; J1885; J7030; Q9967; U0002

== ENCOUNTER 2021-05-02 05:29 | Day surgery (SDC) | payer MEDICAID ==
[2021-05-02] MEDS ORDERED: Dextrose 5%-Lactated Ringers 1,000 ML IV SCH (06:00)
[2021-05-02] MEDS ORDERED: Propofol 200 MG/20 ML SDV ONE (07:10)
[2021-05-02] MEDS ORDERED: Midazolam 1 MG/ML 2 ML SDV ONE (07:10)
[2021-05-02] MEDS ORDERED: fentaNYL 100 MCG/2 ML SDV ONE (07:10)
[2021-05-02 09:38] VITALS: BP 117/74; PULSE 66
--- NOTE | 2021-05-10 20:30 | OR ---
DATE OF PROCEDURE: 05/02/2021 SURGEON: Ovi Murrell MD PREOPERATIVE DIAGNOSIS: Left lower quadrant abdominal pain. POSTOPERATIVE DIAGNOSES: Active colitis beginning in the mid sigmoid colon to the splenic flexure colon. OPERATIVE PROCEDURES: Flexible colonoscopy with: 1. Collection of stool for culture and sensitivity. 2. Biopsies of areas of colitis beginning in sigmoid colon extending through splenic flexure colon. ANESTHESIA: IV sedation. INDICATIONS FOR PROCEDURE: This is a 20-year-old female with some ongoing left lower quadrant pain. Workup thus far has been negative, and she is referred for colonoscopy at this time. Potential risks of the procedure including bleeding and perforation were discussed, and the patient wishes to proceed. DETAILS OF PROCEDURE: The patient was taken to the operating room, placed in left lateral decubitus position. IV sedation was administered after which the initial digital rectal exam was performed and was unremarkable. Colonoscope was then passed into the rectum with retroflexion revealing uncomplicated hemorrhoidal columns. Scope was eventually passed to the level of the cecum. The prep was quite good with only a small amount of liquid stool that was present. The striking finding in this case was normal rectum and distal most sigmoid colon. As one entered into the area just above the distal most sigmoid colon, there began an area of marked redness and friability of the mucosa. There were no ulcerations, but the simple movement of the colonoscope over the mucosa resulted in some oozing of blood. This continued up to the splenic flexure of the colon. Proximal to the splenic flexure, transverse, ascending colon and cecum were grossly unremarkable. At this point, stool was obtained for cultures and following this, a focal biopsy was obtained from the area of the colon polyp, i.e., the sigmoid colon, descending colon and splenic flexure and sent for histologic evaluation. Minimal bleeding from the biopsy sites was seen and the procedure was then concluded. The pattern at this point would be suggestive of Crohn disease with rectal sparing. The pathology of biopsy is pending. The patient will be set up for followup with Internal Medicine either hopefully latter part of next week when the cultures and pathology should be available. Ovi Murrell MD /[id number]
== END 2021-05-02 09:41 | disposition home or self-care (01) ==
LOC: JP.SDS 05:29
PROVIDERS: ATTEND Surgery
DX: K52.9 Noninfective gastroenteritis and colitis, unspecified (principal); K64.9 Unspecified hemorrhoids; F41.1 Generalized anxiety disorder
CPT/HCPCS: 45380; 81025; 87046; 87177; 87209; 87493; 87899; 88305; 89055; J2250; J2704; J3010; J7121

== ENCOUNTER 2023-03-25 10:35 | Emergency (ER) | payer MEDICAID ==
[2023-03-25 12:17] VITALS: BP 120/73; PULSE 64
[2023-03-25 13:13] LABS: BASOPHILS ABSOLUTE AUTO 0.03 K/uL (0.00-0.10); BASOPHILS PERCENT AUTO 0.3 % (0.1-1.3); HEMATOCRIT 46.5 % (34.3-46.0); HEMOGLOBIN 15.6 g/dL (11.2-15.5); IMMATURE GRAN ABSOLUTE AUTO 0.03 K/uL (0.00-0.23); IMMATURE GRAN PERCENT AUTO 0.3 % (0.0-0.7); LYMPHOCYTES ABSOLUTE AUTO 1.34 K/uL (0.8-3.3); LYMPHOCYTES PERCENT AUTO 12.9 % (11.4-47.7); MEAN CORPUSCULAR HEMOGLOBIN 29.7 pg (31.6-35.5); MEAN CORPUSCULAR HGB CONC 33.5 g/dL (31.6-35.5); MEAN CORPUSCULAR VOLUME 88.6 fL (81.4-99.0); MONOCYTES ABSOLUTE AUTO 0.66 K/uL (0.20-0.90); MONOCYTES PERCENT AUTO 6.3 % (3.3-12.6); NEUTROPHILS ABSOLUTE AUTO 8.35 K/uL (1.0-7.6); NEUTROPHILS PERCENT AUTO 80.2 % (40.0-78.1); PLATELET COUNT,PLT 366 K/uL (130-375); RED BLOOD CELL COUNT 5.25 M/uL (3.77-5.24); WHITE BLOOD CELL COUNT,WBC 10.4 K/uL (3.2-11.0)
[2023-03-25 13:14] LABS: APPEARANCE,URINE SLIGHTLY CLOUDY (CLEAR); BILIRUBIN,URINE NEGATIVE (NEGATIVE); COLOR,URINE YELLOW (YELLOW); GLUCOSE,URINE NEGATIVE (NEGATIVE); KETONES,URINE 40 mg/dL (NEGATIVE); LEUKOCYTE ESTERASE,URINE NEGATIVE (NEGATIVE); NITRITE,URINE NEGATIVE (NEGATIVE); OCCULT BLOOD,URINE NEGATIVE (NEGATIVE); PROTEIN,URINE NEGATIVE (NEGATIVE); UROBILINOGEN,URINE 0.2 EU/dL (0.2-1.0)
[2023-03-25 13:27] LABS: AMORPHOUS SEDIMENT,URINE MODERATE; BACTERIA,URINE MODERATE; EPITHELIAL CELLS,URINE RARE; MUCUS,URINE MANY; RBC,URINE NOT SEEN (0-5); WBC,URINE 0-5 (0-5)
[2023-03-25 13:34] LABS: A/G RATIO 1.3 (1.2-2.2); ALANINE AMINOTRANSFERASE,ALT 17 U/L (12-78); ALBUMIN 4.3 g/dL (3.4-5.0); ALKALINE PHOSPHATASE 97 U/L (46-116); ANION GAP 11.2 mmol/L (5.0-14.0); ASPARTATE AMNIOTRANSFERASE,AST 20 U/L (15-37); BLOOD UREA NITROGEN,BUN 4 mg/dL (7-18); CARBON DIOXIDE,CO2 28 mmol/L (21-32); CHLORIDE,CL 101 mmol/L (100-108); CREATININE 0.7 mg/dL (0.6-1.0); EST CRCL DRUG DOSING (CG) 98.86 mL/min; ESTIMATED GFR 125 mL/min (>60); GLUCOSE RANDOM 97 mg/dL (74-106); POTASSIUM,K 3.9 mmol/L (3.6-5.2); PROTEIN TOTAL,TP 7.7 g/dL (6.4-8.2); SODIUM,NA 140 mmol/L (140-148)
[2023-03-25 13:35] LABS: C-REACTIVE PROTEIN < 0.05 mg/dL (0.0-0.3)
== END 2023-03-25 14:32 | disposition home or self-care (01) ==
LOC: JP.ED 10:35
DX: A08.4 Viral intestinal infection, unspecified (principal); R82.71 Bacteriuria; J45.909 Unspecified asthma, uncomplicated; K21.9 Gastro-esophageal reflux disease without esophagitis; F17.210 Nicotine dependence, cigarettes, uncomplicated; Z79.899 Other long term (current) drug therapy; Z88.8 Allergy status to other drugs, medicaments and biological substances
CPT/HCPCS: 36415; 80053; 81001; 81025; 83605; 85025; 86140; 87086; 99283; 99284

== ENCOUNTER 2023-04-22 12:45 | Emergency (ER) | payer MEDICAID ==
[2023-04-22 13:10] VITALS: BP 149/110; PULSE 63
[2023-04-22 13:39] LABS: BASOPHILS ABSOLUTE AUTO 0.02 K/uL (0.00-0.10); BASOPHILS PERCENT AUTO 0.3 % (0.1-1.3); EOSINOPHILS ABSOLUTE AUTO 0.04 K/uL (0.00-0.40); EOSINOPHILS PERCENT AUTO 0.6 % (0.0-5.4); HEMATOCRIT 43.4 % (34.3-46.0); HEMOGLOBIN 15.3 g/dL (11.2-15.5); IMMATURE GRAN ABSOLUTE AUTO 0.01 K/uL (0.00-0.23); IMMATURE GRAN PERCENT AUTO 0.2 % (0.0-0.7); LYMPHOCYTES PERCENT AUTO 36.2 % (11.4-47.7); MEAN CORPUSCULAR HEMOGLOBIN 29.5 pg (31.6-35.5); MEAN CORPUSCULAR HGB CONC 35.3 g/dL (31.6-35.5); MEAN CORPUSCULAR VOLUME 83.8 fL (81.4-99.0); MONOCYTES ABSOLUTE AUTO 0.65 K/uL (0.20-0.90); MONOCYTES PERCENT AUTO 10.2 % (3.3-12.6); NEUTROPHILS ABSOLUTE AUTO 3.33 K/uL (1.0-7.6); NEUTROPHILS PERCENT AUTO 52.5 % (40.0-78.1); PLATELET COUNT,PLT 292 K/uL (130-375); RED BLOOD CELL COUNT 5.18 M/uL (3.77-5.24); WHITE BLOOD CELL COUNT,WBC 6.4 K/uL (3.2-11.0)
== END 2023-04-22 14:54 | disposition home or self-care (01) ==
LOC: JP.ED 12:45
DX: N92.1 Excessive and frequent menstruation with irregular cycle (principal); J45.909 Unspecified asthma, uncomplicated; Z72.0 Tobacco use; Z88.8 Allergy status to other drugs, medicaments and biological substances; Z79.899 Other long term (current) drug therapy
CPT/HCPCS: 36415; 84702; 85025; 99284

== ENCOUNTER 2023-07-01 18:09 | Emergency (ER) | payer MEDICAID ==
[2023-07-01 19:34] LABS: BASOPHILS PERCENT AUTO 0.3 % (0.1-1.3); EOSINOPHILS ABSOLUTE AUTO 0.03 K/uL (0.00-0.40); EOSINOPHILS PERCENT AUTO 0.5 % (0.0-5.4); HEMATOCRIT 36.4 % (34.3-46.0); HEMOGLOBIN 12.5 g/dL (11.2-15.5); IMMATURE GRAN PERCENT AUTO 0.2 % (0.0-0.7); LYMPHOCYTES ABSOLUTE AUTO 2.31 K/uL (0.8-3.3); LYMPHOCYTES PERCENT AUTO 35.4 % (11.4-47.7); MEAN CORPUSCULAR HEMOGLOBIN 28.5 pg (31.6-35.5); MEAN CORPUSCULAR HGB CONC 34.3 g/dL (31.6-35.5); MEAN CORPUSCULAR VOLUME 82.9 fL (81.4-99.0); MONOCYTES ABSOLUTE AUTO 0.61 K/uL (0.20-0.90); MONOCYTES PERCENT AUTO 9.3 % (3.3-12.6); NEUTROPHILS ABSOLUTE AUTO 3.55 K/uL (1.0-7.6); NEUTROPHILS PERCENT AUTO 54.3 % (40.0-78.1); PLATELET COUNT,PLT 260 K/uL (130-375); RED BLOOD CELL COUNT 4.39 M/uL (3.77-5.24); WHITE BLOOD CELL COUNT,WBC 6.5 K/uL (3.2-11.0)
[2023-07-01 19:35] LABS: BASOPHILS ABSOLUTE AUTO 0.02 K/uL (0.00-0.10); IMMATURE GRAN ABSOLUTE AUTO 0.01 K/uL (0.00-0.23)
[2023-07-01 20:07] LABS: ALANINE AMINOTRANSFERASE,ALT 35 U/L (12-78); ALKALINE PHOSPHATASE 63 U/L (46-116); ANION GAP 14.8 mmol/L (5.0-14.0); ASPARTATE AMNIOTRANSFERASE,AST 21 U/L (15-37); BILIRUBIN TOTAL 0.5 mg/dL (0.2-1.0); BLOOD UREA NITROGEN,BUN 9 mg/dL (7-18); CARBON DIOXIDE,CO2 25 mmol/L (21-32); CHLORIDE,CL 103 mmol/L (100-108); CREATININE 0.7 mg/dL (0.6-1.0); EST CRCL DRUG DOSING (CG) 96.88 mL/min; ESTIMATED GFR 125 mL/min (>60); GLUCOSE RANDOM 86 mg/dL (74-106); POTASSIUM,K 3.8 mmol/L (3.6-5.2); PROTEIN TOTAL,TP 7.2 g/dL (6.4-8.2); SODIUM,NA 139 mmol/L (140-148)
[2023-07-01] MEDS: Sodium Chloride 0.9% 10 ML Syringe FLUSH ONE (20:11)
[2023-07-01] MEDS: Iopamidol 612 MG/ML 100 ML Bottle IV ONE (20:11)
[2023-07-01] MEDS: Sodium Chloride 0.9% 100 ML IV ONE (20:11)
[2023-07-01 21:01] VITALS: BP 116/76; PULSE 55
[2023-07-01 21:01] LABS: A/G RATIO 1.3 (1.2-2.2)
== END 2023-07-01 21:45 | disposition home or self-care (01) ==
LOC: JP.ED 18:09
DX: R56.9 Unspecified convulsions (principal); E03.9 Hypothyroidism, unspecified; Z90.49 Acquired absence of other specified parts of digestive tract; F17.200 Nicotine dependence, unspecified, uncomplicated; Z79.899 Other long term (current) drug therapy; Z88.8 Allergy status to other drugs, medicaments and biological substances
CPT/HCPCS: 36415; 70470; 70491; 80053; 83605; 85025; 93005; 99285; J3490; Q9967

== ENCOUNTER 2025-01-12 06:29 | Emergency (ER) | payer SELFPAY ==
[2025-01-12] MEDS: diphenhydrAMINE 50 MG/ML SDV IVPUSH ONE (08:08)
[2025-01-12 09:03] VITALS: BP 132/86; PULSE 64
== END 2025-01-12 09:06 | disposition left against medical advice (07) ==
LOC: JP.ED 06:29
DX: R51.9 Headache, unspecified (principal); Z88.8 Allergy status to other drugs, medicaments and biological substances
CPT/HCPCS: 96361; 96374; 96375; 99283; J1200; J1790; J7030

== ENCOUNTER 2025-01-18 06:40 | Emergency (ER) | payer SELFPAY ==
[2025-01-18 06:53] VITALS: BP 153/96; PULSE 137
[2025-01-18] MEDS: Prochlorperazine 10 MG/2 ML SDV IVPUSH ONE (07:57)
[2025-01-18] MEDS: Ketorolac 30 MG/ML SDV IVPUSH ONE (07:57)
== END 2025-01-18 09:11 | disposition home or self-care (01) ==
LOC: JP.ED 06:40
DX: G44.009 Cluster headache syndrome, unspecified, not intractable (principal); J45.909 Unspecified asthma, uncomplicated; F17.200 Nicotine dependence, unspecified, uncomplicated; Z90.49 Acquired absence of other specified parts of digestive tract; Z88.8 Allergy status to other drugs, medicaments and biological substances; Z79.899 Other long term (current) drug therapy
CPT/HCPCS: 96361; 96374; 96375; 99284; J0780; J1885; J7030; 99283